=== PATIENT | male | born 1955 | race Caucasian/White ===

== ENCOUNTER → 2019-04-03 | Outpatient (CLI) | payer OTHER | END | disposition home or self-care (01) | LOC: PCVCCLINIC 14:30 | PROVIDERS: ATTEND Internal Medicine | DX: I25.10 Atherosclerotic heart disease of native coronary artery without angina pectoris (principal); I10 Essential (primary) hypertension; E78.5 Hyperlipidemia, unspecified; J45.909 Unspecified asthma, uncomplicated; M19.90 Unspecified osteoarthritis, unspecified site; F17.200 Nicotine dependence, unspecified, uncomplicated; Z79.899 Other long term (current) drug therapy; Z80.0 Family history of malignant neoplasm of digestive organs; Z82.49 Family history of ischemic heart disease and other diseases of the circulatory system; Z85.46 Personal history of malignant neoplasm of prostate; Z72.89 Other problems related to lifestyle | CPT/HCPCS: G0463 ==

== ENCOUNTER → 2019-04-03 | Outpatient (CLI) | payer OTHER | END | disposition home or self-care (01) | LOC: PCVCCLINIC 14:30 | PROVIDERS: ATTEND Internal Medicine | DX: I25.10 Atherosclerotic heart disease of native coronary artery without angina pectoris (principal); I10 Essential (primary) hypertension; E78.5 Hyperlipidemia, unspecified; F17.200 Nicotine dependence, unspecified, uncomplicated; R93.1 Abnormal findings on diagnostic imaging of heart and coronary circulation; Z85.46 Personal history of malignant neoplasm of prostate; Z79.899 Other long term (current) drug therapy | CPT/HCPCS: G0463 ==

== ENCOUNTER → 2019-05-22 | Outpatient (CLI) | payer OTHER ==
--- NOTE | 2019-05-22 11:43 | PCVCIMAG ---
APPROVED REPORT Study performed: 05/22/2019 09:00:48 EXAM: Comprehensive 2D, Doppler, and color-flow Echocardiogram Patient Location: Echo lab Status: routine BSA: 2.31 HR: 60 bpmBP: 130/88 mmHg Rhythm: NSR Other Information Study Quality: Adequate Risk Factors: Cardiac Risk Factors: HTN, Smoking Indications Dyspnea CAD elevated coronary calcium score >1200 2D Dimensions IVSd: 12.03 (7-11mm) LVDd: 49.37 mm PWd: 11.77 (7-11mm)Ascending Ao: 39.68 (22-36mm) LVDs: 40.80 (25-40mm) Left Atrium: 40.64 (27-40mm) Aortic Root: 36.01 mm LV Single Plane 4CH: 54.65 % LV Single Plane 2CH: 51.07 % Biplane EF: 53.0 % Volumes Left Atrial Volume (Systole) Single Plane 4CH: 90.78 mLSingle Plane 2CH: 115.49 mL LA ESV Index: 46.00 mL/m2 Aortic Valve AoV Peak Jj.: 1.36 m/s AO Peak Gr.: 7.40 mmHgLVOT Max P.95 mmHg LVOT Max V: 1.11 m/s Mitral Valve MV Peak Gr.: 11.49 mmHg MV Mean Gr.: 3.65 mmHgE/A Ratio: 0.7 MV Decel. Time: 335.46 ms MV E Max Jj.: 1.07 m/s MV A Jj.: 1.52 m/s MV Max Jj.: 1.69 m/s MV Mean Jj.: 0.88 m/s MV VTI: 484.08 mm MV PHT: 106.16 ms MVA (PHT): 2.07 cm2 IVRT: 121.11 ms Pulmonary Valve PV Peak Jj.: 0.83 m/sPV Peak Gr.: 2.77 mmHg Pulmonary Vein P Vein S: 0.69 m/sP Vein A: 0.43 m/s P Vein D: 0.82 m/sP Vein A Dur.: 162.6 msec P Vein S/D Ratio: 0.84 Tricuspid Valve TR Peak Jj.: 3.08 m/s TR Peak Gr.: 38.02 mmHg Left Ventricle The left ventricle is normal size. There is normal LV segmental wall motion. Mild concentric left ventricular hypertrophy. Left ventricular systolic function is normal. The left ventricular ejection fraction is within the normal range. LVEF is 55%. Grade I - abnormal relaxation pattern. Right Ventricle The right ventricle is normal size. The right ventricular systolic function is normal. Atria Left atrium is moderately dilated. The right atrium size is normal. Aortic Valve The aortic valve is normal in structure. Trace aortic regurgitation. There is no aortic valvular stenosis. Mitral Valve The mitral valve is normal in structure. Moderate mitral regurgitation. No evidence of mitral valve stenosis. Tricuspid Valve The tricuspid valve is normal in structure. Mild tricuspid regurgitation with PAP of 45 mmHg. Pulmonic Valve The pulmonary valve is normal in structure. Trace pulmonic regurgitation. Great Vessels The aortic root is normal in size. The ascending aorta is mildly dilated to 4.0 cm. IVC is normal in size and collapses >50% with inspiration. Pericardium There is no pericardial effusion. There is no pleural effusion. <Conclusion> The left ventricle is normal size. Left atrium is moderately dilated. The aortic valve is normal in structure. Trace aortic regurgitation. The mitral valve is normal in structure. Moderate mitral regurgitation. The tricuspid valve is normal in structure. Mild tricuspid regurgitation with PAP of 45 mmHg. The pulmonary valve is normal in structure. Trace pulmonic regurgitation. There is no pericardial effusion.
--- NOTE | 2019-05-22 12:32 | PCVCIMAG ---
APPROVED REPORT Imaging Protocol: Rest Tc-99m/Stress Tc-99m 1 day Study performed: 05/22/2019 10:00:37 Indication: CAD, Elevated Calcium Score Patient Location: Out-Patient Stress Nurse: Janice Farnsworth RN NM Tech:Trever Lao NMTCB Ht: 6 ft 0 in Wt: 230 lbs BSA: 2.26 m2 HR: 67 bpm BP: 186/86 mmHg BMI: 31.1 Rhythm: Sinus Rhythm Medical History Medical History: Age, Hyperlipidemia, HTN, Former Smoker Medications: Lisinopril, Verapamil Allergies: No known drug allergies Resting Data Rest SPECT myocardial perfusion imaging was performed in supine position 45 minutes following the intravenous injection of 11.3 mCi of Tc-99m Sestamibi. Time of rest injection: 944 Date: 05/22/2019 Administration Route: IV Administration Site: Left AC Pharmacologic Stress Pharmacologic stress test was performed by injecting Regadenoson 0.4 mg IV push over 10-15 seconds immediately followed by the intravenous injection of 35 mCi of Tc-99m Sestamibi. Time of stress injection: 1114 Date: 05/22/2019 Administration Route: IV Administration Site: Left AC Gated Stress SPECT was performed 45 minutes after stress injection. The images were gated to evaluate regional wall motion and calculate left ventricular ejection fraction. Stress Test Details Stress Test: Exercise stress testing was performed using a Sami protocol. HRMax Heart Rate (APMHR): 155 bpm Resting HR: 67 bpmTarget HR (85% APMHR): 131 bpm Max HR Achieved: 144 bpm % of APMHR: 92 Recovery HR: 88 bpm BP Resting BP: 186/86 mmHg Max BP: 222/107 mmHg Recovery BP: 193/93 mmHg ECG Resting ECG: Sinus Rhythm Stress ECG: Sinus Tachycardia Arrhythmia: PVC's Recovery ECG: Sinus Rhythm Recovery Arrhythmia: VPC, bigiminy Clinical Reason for Termination: Maximal effort, Dyspnea Stress Symptoms: Dyspnea Exercise duration: 5 min 56 sec Exercise capacity: 7 METs Overall Exercise Capacity for Age: Poor Symptoms resolved with caffeine. Stress ECG Conclusion 1. subjectively negative for ischemia 2. electrocardiographically negative for ischemia 3. ventricular bigeminy during recovery assymptomatic Study Data Post stress, the left ventricular ejection was 55%.. SSS: 5 SRS: 3 SDS: 2 TID = 0.91. Perfusion There is a small area of moderately reduced uptake in the apical segment of the inferior wall which is seen on the stress images as well as the resting images. This area thickens and moves normally and is most consistent with attenuation artifact. Wall Motion Normal left ventricular wall motion. Nuclear Conclusion ECG Findings: negative for ischemia Clinical Findings: negative for ischemia Nuclear Findings: negative for ischemia Exercise Capacity: below average Left Ventricular Function: normal 1. low risk based on abscence of inducible ischemia 2. post stress LVEF 55% without wall motion abnormalities Interpreted by: Barbara Aguirre MD Electronically Approved: 05/22/2019 12:32:02 <Conclusion> 1. subjectively negative for ischemia 2. electrocardiographically negative for ischemia 3. ventricular bigeminy during recovery assymptomatic
== END | disposition home or self-care (01) ==
LOC: PCVCIMAG 09:00
PROVIDERS: ATTEND Internal Medicine
DX: I25.10 Atherosclerotic heart disease of native coronary artery without angina pectoris (principal); I11.9 Hypertensive heart disease without heart failure; I08.1 Rheumatic disorders of both mitral and tricuspid valves; M19.90 Unspecified osteoarthritis, unspecified site; Z87.891 Personal history of nicotine dependence; Z85.46 Personal history of malignant neoplasm of prostate; Z80.0 Family history of malignant neoplasm of digestive organs
CPT/HCPCS: 78452; 93017; 93306; A9500